=== PATIENT | female | born 1940 | race Hispanic/Latino ===

== ENCOUNTER 2020-01-08 02:14 | Inpatient (IN) | payer MEDICARE, OTHER ==
[~2020-01-08] VITALS: Ht 157.5 cm; Wt 57.5 kg
[2020-01-08] MEDS ORDERED: LEVOFLOXACIN 750 MG/D5W 150 ML 150 ML ONE (02:44)
[2020-01-08] MEDS ORDERED: CEFTRIAXONE SODIUM 1 GM ONE (02:44)
[2020-01-08 03:05] LABS: BASOPHILS % (AUTO) 0.4 % (0.0-5.0); HEMATOCRIT 32.7 % (36-48); LYMPHOCYTES % (AUTO) 6.1 % (21.0-51.0); MEAN CORPUSCULAR HEMOGLOBIN 30.8 pg (27.0-33.0); MEAN CORPUSCULAR HGB CONC 35.2 g/dL (32.0-36.0); MEAN CORPUSCULAR VOLUME 87.7 fL (79-99); MONOCYTES % (AUTO) 4.6 % (3.0-13.0); NEUTROPHILS % (AUTO) 82.5 % (40.0-77.0); PLATELET COUNT (AUTO) 226 K/uL (130-400); RED BLOOD CELL COUNT(AUTO) 3.73 MIL/uL (4.00-5.50); RED CELL DISTRIBUTION WIDTH 12.7 % (11.0-15.5); WHITE BLOOD COUNT (AUTO) 18.7 K/uL (4.8-10.8)
[2020-01-08] MEDS ORDERED: SODIUM CHLORIDE 0.9% 100 ML IV ONE (03:08)
[2020-01-08 03:20] LABS: CREATININE 1.8 mg/dL (0.5-1.5); POTASSIUM 3.6 mmol/L (3.5-5.1)
[2020-01-08 03:25] LABS: ALBUMIN 2.8 g/dL (3.5-5.0); BILIRUBIN,TOTAL 0.6 mg/dL (0.2-1.0); TOTAL PROTEIN, SERUM 7.9 g/dL (6.0-8.3)
[2020-01-08] MEDS: AZITHROMYCIN 500MG+NS 250ML 250 ML IV SCH (04:45)
[2020-01-08] MEDS ORDERED: ONDANSETRON HCL 4 MG/2 ML VIAL IV PRN (04:45)
[2020-01-08] MEDS ORDERED: ERGOCALCIFEROL (VITAMIN D2) 50,000 UNIT CAPSULE PO SCH (04:45)
[2020-01-08] MEDS ORDERED: DOXYCYCLINE 100MG+NS 250ML 250 ML IV SCH (04:45)
[2020-01-08] MEDS ORDERED: ACETAMINOPHEN 325 MG TAB PO PRN ×2 (04:45)
[2020-01-08] MEDS ORDERED: DOXYCYCLINE 100MG+NS 250ML 250 ML IV ONE (04:49)
[2020-01-08] MEDS ORDERED: ACETYLCYSTEINE 600 MG CAPSULE ONE ×3 (04:55→05:43)
[2020-01-08] MEDS ORDERED: ERGOCALCIFEROL (VITAMIN D2) 50,000 UNIT CAPSULE ONE ×3 (04:55→05:42)
[2020-01-08] MEDS ORDERED: AZITHROMYCIN 500MG+NS 250ML 250 ML IV ONE (05:36)
[2020-01-08] MEDS ORDERED: METHYLPREDNISOLONE SOD SUCC 40MG/ML 1ML ONE (05:36)
[2020-01-08 07:04] LABS: APPEARANCE,URINE Clear (CLEAR); BILIRUBIN,URINE Negative (NEGATIVE); COLOR,URINE Yellow (YELLOW); GLUCOSE, URINE (UA) Negative (NEGATIVE); KETONES,URINE Negative (NEGATIVE); LEUKOCYTE ESTERASE ,URINE Trace (NEGATIVE); NITRATE,URINE Negative (NEGATIVE); OCCULT BLOOD,URINE Small (NEGATIVE); PROTEIN,URINE POS 1+ mg/dL (NEGATIVE); UROBILINOGEN,URINE 0.2 mg/dL (0.2-1.0)
[2020-01-08 07:25] LABS: BACTERIA,URINE Rare /HPF (None Seen); RBC,URINE 0-1 /HPF (0-1); SQUAMOUS EPITHELIAL CELL,UR Rare /HPF (0-2)
[2020-01-08] MEDS: ASCORBIC ACID 500 MG TAB PO SCH (09:00)
[2020-01-08] MEDS ORDERED: ACETYLCYSTEINE 600 MG CAPSULE PO SCH (09:00)
[2020-01-08] MEDS: ZINC SULFATE 220 CAPSULE PO SCH (09:00)
[2020-01-08] MEDS ORDERED: ASCORBIC ACID 500 MG TAB ONE (09:12)
[2020-01-08] MEDS ORDERED: ZINC SULFATE 220 CAPSULE ONE (09:12)
[2020-01-08] MEDS ORDERED: HEPARIN SODIUM 5000UNIT/ML 1ML VIAL ONE (09:12)
--- NOTE | 2020-01-08 12:01 | NUR ---
DC PLAN CALLED DAUGHTER ON FACE SHEET NO ANSWER. RAJAT WILL CONTINUE TO FOLLOW. Addendum: 01/08/20 at 1202 by ANALISA TYLER RN CM Amended: Links added.
--- NOTE | 2020-01-08 12:36 | NUR ---
CHART CHECK COMPLETED Pt IS A 79 Y.O. FEMALE ADMITTED SECONDARY TO ACUTE RESPIRATORY FAILURE, COVID+. 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 Pt CURRENTLY ON REGULAR TEXTURE,THIN LIQUID DIET (RENAL NONDIALYSIS). PLEASE REQUEST FORMAL SKILLED SPEECH/SWALLOW EVALUATION IF Pt PRESENTS WITH +S/S OF ASPIRATION SUCH COUGH RESPONSE, THROAT CLEAR, OR WET VOCAL QUALITY DURING P.O. Addendum: 01/08/20 at 1241 by CONCHA MIN, [address] Amended: Links added.
[2020-01-08] MEDS: METHYLPREDNISOLONE SOD SUCC 40MG/ML 1ML IVP SCH ×2 (13:23→21:11)
[2020-01-08] MEDS: HEPARIN SODIUM 5000UNIT/ML 1ML VIAL SQ SCH ×2 (13:24→21:08)
[2020-01-08] MEDS ORDERED: AEC81 PO (13:53)
[2020-01-08] MEDS ORDERED: FOLI1TAB85 PO (13:53)
[2020-01-08] MEDS ORDERED: MONT10TA26 PO (13:53)
[2020-01-08] MEDS ORDERED: METO25TA6 PO (13:53)
[2020-01-08] MEDS ORDERED: LINA5TAB PO (13:53)
[2020-01-08] MEDS ORDERED: LOSA100T58 PO (13:53)
[2020-01-08] MEDS ORDERED: FERR240T6 PO (13:53)
[2020-01-08 14:03] VITALS: BP 137/73
[2020-01-08 16:00] VITALS: BP 122/70
[2020-01-08] MEDS: INSULIN LISPRO 100 UNIT/ML 3ML SQ SCH (16:50)
[2020-01-08 20:41] VITALS: BP 113/69
[2020-01-08] MEDS: INSULIN GLARGINE 100 UNITS/ML 10 ML VIAL SQ SCH (21:10)
[2020-01-08] MEDS: DOXYCYCLINE 100MG+NS 250ML 250 ML IV SCH (21:11)
[2020-01-08] MEDS: ACETYLCYSTEINE 20% 200MG/ML 4ML VIAL PO SCH (21:12)
[2020-01-08 23:33] VITALS: BP 118/70
[2020-01-09 03:47] VITALS: BP 116/66
[2020-01-09 05:01] LABS: BASOPHILS % (AUTO) 0.6 % (0.0-5.0); HEMATOCRIT 31.3 % (36-48); LYMPHOCYTES % (AUTO) 5.2 % (21.0-51.0); MEAN CORPUSCULAR HEMOGLOBIN 30.5 pg (27.0-33.0); MEAN CORPUSCULAR HGB CONC 33.9 g/dL (32.0-36.0); MEAN CORPUSCULAR VOLUME 89.9 fL (79-99); MONOCYTES % (AUTO) 2.2 % (3.0-13.0); NEUTROPHILS % (AUTO) 84.9 % (40.0-77.0); PLATELET COUNT (AUTO) 202 K/uL (130-400); RED BLOOD CELL COUNT(AUTO) 3.48 MIL/uL (4.00-5.50); RED CELL DISTRIBUTION WIDTH 13.1 % (11.0-15.5); WHITE BLOOD COUNT (AUTO) 12.5 K/uL (4.8-10.8)
[2020-01-09 05:40] LABS: ALBUMIN 2.2 g/dL (3.5-5.0); BILIRUBIN,TOTAL 0.3 mg/dL (0.2-1.0); CREATININE 2.8 mg/dL (0.5-1.5); CRP QUANTITATIVE 118.4 mg/L (0.00-9.0); POTASSIUM 4.4 mmol/L (3.5-5.1)
[2020-01-09 05:54] LABS: TOTAL PROTEIN, SERUM 6.9 g/dL (6.0-8.3)
[2020-01-09] MEDS: AZITHROMYCIN 500MG+NS 250ML 250 ML IV SCH (06:32)
[2020-01-09] MEDS: INSULIN LISPRO 100 UNIT/ML 3ML SQ SCH (06:36)
[2020-01-09] MEDS: METHYLPREDNISOLONE SOD SUCC 40MG/ML 1ML IVP SCH ×3 (07:54→21:04)
[2020-01-09] MEDS: DOXYCYCLINE 100MG+NS 250ML 250 ML IV SCH ×2 (07:54→21:04)
[2020-01-09] MEDS: ASCORBIC ACID 500 MG TAB PO SCH (07:54)
[2020-01-09] MEDS: ZINC SULFATE 220 CAPSULE PO SCH (07:55)
[2020-01-09] MEDS: HEPARIN SODIUM 5000UNIT/ML 1ML VIAL SQ SCH ×2 (07:58→16:20)
[2020-01-09 08:40] VITALS: BP 129/80
[2020-01-09] MEDS: ACETYLCYSTEINE 20% 200MG/ML 4ML VIAL PO SCH ×2 (09:00→21:05)
[2020-01-09] MEDS: INSULIN HUMULIN R 100 UNIT/ML 3ML SQ SCH ×5 (11:11→21:06)
[2020-01-09] MEDS: THIAMINE HCL 100 MG TABLET PO SCH (11:33)
[2020-01-09 11:45] VITALS: BP 127/68
--- NOTE | 2020-01-09 15:55 | NUR ---
INITIAL: Unable to meet w pt. Call placed to Nallely (POTruman per facesheet). Per Nallely, prior to admission pt was living w her. PT was independent w ambulation and ADLs, was active w gardening and drove self where needed. Per Nallely pt has a home a nebulizer and a transport chair (although does not know of its condition). Per nallely she feels safe and comfortable for pt to [place]. Per Nallely she will drop off copy of POA tomorrow. CM to continue to follow and wait for Md recommendations. Addendum: 01/09/20 at 1559 by NICK MALIK Amended: Links added.
[2020-01-09 16:26] VITALS: BP 125/79
[2020-01-09] MEDS: PHARMACY COMMUNICATION MISC SCH (19:15)
[2020-01-09 20:39] VITALS: BP 128/57
[2020-01-09] MEDS: APIXABAN 5 MG TABLET PO SCH (21:04)
[2020-01-09] MEDS: INSULIN GLARGINE 100 UNITS/ML 10 ML VIAL SQ SCH (21:05)
[2020-01-09 23:46] VITALS: BP 121/80
[2020-01-10] MEDS: PHARMACY COMMUNICATION MISC SCH ×2 (03:15→20:00)
[2020-01-10 03:30] LABS: APPEARANCE,URINE Clear (CLEAR); BILIRUBIN,URINE Negative (NEGATIVE); COLOR,URINE Yellow (YELLOW); GLUCOSE, URINE (UA) Negative (NEGATIVE); KETONES,URINE Negative (NEGATIVE); LEUKOCYTE ESTERASE ,URINE Trace (NEGATIVE); NITRATE,URINE Negative (NEGATIVE); OCCULT BLOOD,URINE Negative (NEGATIVE); PROTEIN,URINE Negative (NEGATIVE); UROBILINOGEN,URINE 0.2 mg/dL (0.2-1.0)
[2020-01-10 03:31] LABS: SODIUM,URINE RANDOM 48 mmol/l (40-220)
[2020-01-10 03:41] LABS: BACTERIA,URINE Rare /HPF (None Seen); RBC,URINE None Seen /HPF (0-1)
[2020-01-10 04:00] VITALS: BP 136/72
[2020-01-10] MEDS: AZITHROMYCIN 500MG+NS 250ML 250 ML IV SCH (04:11)
[2020-01-10 05:33] LABS: BASOPHILS % (AUTO) 0.6 % (0.0-5.0); HEMATOCRIT 33.5 % (36-48); LYMPHOCYTES % (AUTO) 4.7 % (21.0-51.0); MEAN CORPUSCULAR HEMOGLOBIN 30.9 pg (27.0-33.0); MEAN CORPUSCULAR HGB CONC 33.7 g/dL (32.0-36.0); MEAN CORPUSCULAR VOLUME 91.5 fL (79-99); MONOCYTES % (AUTO) 1.4 % (3.0-13.0); NEUTROPHILS % (AUTO) 85.9 % (40.0-77.0); PLATELET COUNT (AUTO) 266 K/uL (130-400); RED BLOOD CELL COUNT(AUTO) 3.66 MIL/uL (4.00-5.50); RED CELL DISTRIBUTION WIDTH 12.9 % (11.0-15.5)
[2020-01-10] MEDS: INSULIN HUMULIN R 100 UNIT/ML 3ML SQ SCH ×7 (06:09→21:13)
[2020-01-10 06:13] LABS: ALANINE AMINOTRANSFERASE 27 U/L (12-78); ALBUMIN 2.4 g/dL (3.5-5.0); ASPARTATE AMINOTRANSFERASE 25 U/L (10-37); BILIRUBIN,TOTAL 0.4 mg/dL (0.2-1.0); CARBON DIOXIDE 23 mmol/L (21-32); CHLORIDE 99 mmol/L (101-111); CREATININE 1.6 mg/dL (0.5-1.5); GLOMERULAR FILTR. RATE CALC 33 mL/min (>60); GLUCOSE,RANDOM 168 mg/dL (70-105); LACTATE DEHYDROGENASE 328 U/L (81-234); POTASSIUM 3.4 mmol/L (3.5-5.1); SODIUM SERUM 135 mmol/L (136-145); THYROID STIMULATING HORMONE 0.16 uIU/mL (0.36-3.74); UREA NITROGEN, BLOOD 40 mg/dL (7-18)
[2020-01-10] MEDS: ASCORBIC ACID 500 MG TAB PO SCH (08:17)
[2020-01-10] MEDS: FOLIC ACID/VITAMIN B COMP W-C 1 CAP TAB PO SCH (08:17)
[2020-01-10] MEDS: APIXABAN 5 MG TABLET PO SCH ×2 (08:17→21:16)
[2020-01-10] MEDS: METHYLPREDNISOLONE SOD SUCC 40MG/ML 1ML IVP SCH ×3 (08:18→21:15)
[2020-01-10] MEDS: ZINC SULFATE 220 CAPSULE PO SCH (08:18)
[2020-01-10] MEDS: ACETYLCYSTEINE 20% 200MG/ML 4ML VIAL PO SCH ×2 (08:18→21:17)
[2020-01-10] MEDS: DOXYCYCLINE 100MG+NS 250ML 250 ML IV SCH (08:18)
[2020-01-10] MEDS: THIAMINE HCL 100 MG TABLET PO SCH (08:18)
[2020-01-10 09:08] VITALS: BP 139/68
[2020-01-10 11:45] VITALS: BP 118/61
[2020-01-10] MEDS ORDERED: POTASSIUM CHLORIDE 20MEQ/100ML 100 ML IV PRN ×2 (14:00)
[2020-01-10] MEDS ORDERED: POTASSIUM CHLORIDE 10% ELIXIR 20 MEQ/15 ML UDCUP PO PRN (14:00)
[2020-01-10] MEDS ORDERED: POTASSIUM CHLORIDE 20 MEQ ERTAB PO PRN (14:00)
[2020-01-10 16:25] VITALS: BP 141/77
[2020-01-10 19:00] VITALS: BP_SYST 115; BP_SYST 139; BP_DIAS 69; BP_DIAS 82
[2020-01-10] MEDS ORDERED: LACTULOSE 20 GM/30 ML UDCUP PO SCH (19:00)
[2020-01-10] MEDS: INSULIN GLARGINE 100 UNITS/ML 10 ML VIAL SQ SCH (21:14)
[2020-01-10] MEDS: METOPROLOL TARTRATE 25 MG TAB PO SCH (21:15)
[2020-01-10] MEDS: DOXYCYCLINE HYCLATE 100 MG TABLET PO SCH (21:15)
[2020-01-11] VITALS: BP 119/59
--- NOTE | 2020-01-11 00:35 | NUR ---
FIRST UNIT CONVALESCENT PLASMA ADMINISTERED PER HOSPITAL PROTOCOL. PT AGREED AND VERBALIZED UNDERSTANDING WITH THE PROCEDURE. COMPLETED WITHOUT ANY SIGNS AND SYMPTOMS OF TRANSFUSION REACTION. TOLERATED WELL.
[2020-01-11] MEDS: PHARMACY COMMUNICATION MISC SCH ×3 (03:15→19:15)
--- NOTE | 2020-01-11 03:20 | NUR ---
SECOND UNIT CONVALESCENT PLASMA ADMINISTERED PER HOSPITAL PROTOCOL. COMPLETED WITHOUT ANY SIGNS AND SYMPTOMS OF TRANSFUSION REACTION. TOLERATED WELL.
[2020-01-11 03:46] VITALS: BP 126/64
[2020-01-11] MEDS: AZITHROMYCIN 500MG+NS 250ML 250 ML IV SCH (04:01)
[2020-01-11] MEDS: INSULIN HUMULIN R 100 UNIT/ML 3ML SQ SCH ×7 (06:20→21:51)
[2020-01-11 06:25] LABS: BASOPHILS % (AUTO) 0.4 % (0.0-5.0); HEMATOCRIT 28.7 % (36-48); MEAN CORPUSCULAR HEMOGLOBIN 30.3 pg (27.0-33.0); MEAN CORPUSCULAR HGB CONC 33.8 g/dL (32.0-36.0); MEAN CORPUSCULAR VOLUME 89.7 fL (79-99); MONOCYTES % (AUTO) 2.5 % (3.0-13.0); NEUTROPHILS % (AUTO) 85.9 % (40.0-77.0); PLATELET COUNT (AUTO) 210 K/uL (130-400); RED CELL DISTRIBUTION WIDTH 12.6 % (11.0-15.5); WHITE BLOOD COUNT (AUTO) 14.5 K/uL (4.8-10.8)
[2020-01-11 06:50] LABS: ALANINE AMINOTRANSFERASE 23 U/L (12-78); ALBUMIN 2.4 g/dL (3.5-5.0); ASPARTATE AMINOTRANSFERASE 16 U/L (10-37); BILIRUBIN,TOTAL 0.4 mg/dL (0.2-1.0); CARBON DIOXIDE 21 mmol/L (21-32); CHLORIDE 106 mmol/L (101-111); CREATININE 1.5 mg/dL (0.5-1.5); GLOMERULAR FILTR. RATE CALC 36 mL/min (>60); GLUCOSE,RANDOM 231 mg/dL (70-105); LACTATE DEHYDROGENASE 240 U/L (81-234); POTASSIUM 4.4 mmol/L (3.5-5.1); SODIUM SERUM 136 mmol/L (136-145); TOTAL PROTEIN, SERUM 6.4 g/dL (6.0-8.3); UREA NITROGEN, BLOOD 40 mg/dL (7-18)
[2020-01-11 07:20] VITALS: BP 138/72
[2020-01-11] MEDS ORDERED: FOLIC ACID/VITAMIN B COMP W-C 1 CAP TAB PO SCH (09:00)
[2020-01-11] MEDS: ZINC SULFATE 220 CAPSULE PO SCH (10:35)
[2020-01-11] MEDS: LINAGLIPTIN 5 MG TABLET PO SCH (10:35)
[2020-01-11] MEDS: DOXYCYCLINE HYCLATE 100 MG TABLET PO SCH ×2 (10:35→21:29)
[2020-01-11] MEDS: THIAMINE HCL 100 MG TABLET PO SCH (10:35)
[2020-01-11] MEDS: APIXABAN 5 MG TABLET PO SCH ×2 (10:35→21:29)
[2020-01-11] MEDS: ASPIRIN 81 MG EC TAB PO SCH (10:35)
[2020-01-11] MEDS: LOSARTAN 100 MG TABLET PO SCH (10:35)
[2020-01-11] MEDS: FERROUS GLUCONATE 325 MG TABLET PO SCH (10:36)
[2020-01-11] MEDS: FOLIC ACID/VITAMIN B COMP W-C 1 CAP TAB PO SCH (10:36)
[2020-01-11] MEDS: METOPROLOL TARTRATE 25 MG TAB PO SCH ×2 (10:36→21:29)
[2020-01-11] MEDS: MONTELUKAST SODIUM 10 MG TAB PO SCH (10:36)
[2020-01-11] MEDS: ASCORBIC ACID 500 MG TAB PO SCH (10:36)
[2020-01-11] MEDS: ACETYLCYSTEINE 20% 200MG/ML 4ML VIAL PO SCH ×2 (10:37→21:29)
[2020-01-11] MEDS: METHYLPREDNISOLONE SOD SUCC 40MG/ML 1ML IVP SCH ×3 (10:37→21:28)
[2020-01-11 10:46] VITALS: BP 137/60
[2020-01-11 15:48] VITALS: BP 143/71
--- NOTE | 2020-01-11 16:52 | NUR ---
Patient is 97% on 2L NC while in prone position.
--- NOTE | 2020-01-11 18:16 | NUR ---
CM NOTE/[facility] OXYGEN NEW REFERRAL FOR HOME OXYGEN, POA CALLED, BECKY ROACH, AND MADE AWARE. PER POA, OK WITH ANY DME IN NETWORK. REFERRAL FAXED TO [facility], UNFORTUNATELY, IT IS AFTER 5PM AND I AM NOT ABLE TO VERIFY IF IN NETWORK BUT WILL DO SO IN AM. POA MADE AWARE OF LENDING O2 CONCENTRATOR FROM HOSPITAL FOR HOME USE. CM TO FOLLOW UP WITH REFERRAL.
[2020-01-11 19:00] VITALS: BP 134/55
[2020-01-11] MEDS: INSULIN GLARGINE 100 UNITS/ML 10 ML VIAL SQ SCH (21:49)
[2020-01-12] VITALS: BP 145/65
[2020-01-12] MEDS: PHARMACY COMMUNICATION MISC SCH ×3 (03:15→19:15)
[2020-01-12 04:00] VITALS: BP 147/64
[2020-01-12 04:21] LABS: HEMATOCRIT 31.6 % (36-48); MEAN CORPUSCULAR HEMOGLOBIN 30.6 pg (27.0-33.0); MEAN CORPUSCULAR HGB CONC 34.5 g/dL (32.0-36.0); MEAN CORPUSCULAR VOLUME 88.8 fL (79-99); RED BLOOD CELL COUNT(AUTO) 3.56 MIL/uL (4.00-5.50); RED CELL DISTRIBUTION WIDTH 12.6 % (11.0-15.5); WHITE BLOOD COUNT (AUTO) 19.3 K/uL (4.8-10.8)
[2020-01-12 04:30] LABS: CREATININE 1.5 mg/dL (0.5-1.5)
[2020-01-12] MEDS: AZITHROMYCIN 500MG+NS 250ML 250 ML IV SCH (04:55)
[2020-01-12] MEDS: INSULIN HUMULIN R 100 UNIT/ML 3ML SQ SCH ×7 (06:29→21:26)
[2020-01-12 07:25] VITALS: BP 134/70
[2020-01-12] MEDS: ZINC SULFATE 220 CAPSULE PO SCH (10:26)
[2020-01-12] MEDS: DOXYCYCLINE HYCLATE 100 MG TABLET PO SCH ×2 (10:26→21:08)
[2020-01-12] MEDS: LINAGLIPTIN 5 MG TABLET PO SCH (10:26)
[2020-01-12] MEDS: MONTELUKAST SODIUM 10 MG TAB PO SCH (10:26)
[2020-01-12] MEDS: LOSARTAN 100 MG TABLET PO SCH (10:27)
[2020-01-12] MEDS: ASPIRIN 81 MG EC TAB PO SCH (10:27)
[2020-01-12] MEDS: FOLIC ACID/VITAMIN B COMP W-C 1 CAP TAB PO SCH (10:27)
[2020-01-12] MEDS: THIAMINE HCL 100 MG TABLET PO SCH (10:27)
[2020-01-12] MEDS: METOPROLOL TARTRATE 25 MG TAB PO SCH ×2 (10:27→21:08)
[2020-01-12] MEDS: METHYLPREDNISOLONE SOD SUCC 40MG/ML 1ML IVP SCH ×3 (10:27→21:08)
[2020-01-12] MEDS: ASCORBIC ACID 500 MG TAB PO SCH (10:27)
[2020-01-12] MEDS: APIXABAN 5 MG TABLET PO SCH ×2 (10:27→21:08)
[2020-01-12] MEDS: ACETYLCYSTEINE 20% 200MG/ML 4ML VIAL PO SCH ×2 (10:28→21:12)
[2020-01-12] MEDS: FERROUS GLUCONATE 325 MG TABLET PO SCH (10:42)
[2020-01-12 10:49] VITALS: BP 133/65
[2020-01-12 20:45] VITALS: BP 121/72
[2020-01-12] MEDS: INSULIN GLARGINE 100 UNITS/ML 10 ML VIAL SQ SCH (21:27)
[2020-01-13] VITALS: BP 132/70
[2020-01-13] MEDS: PHARMACY COMMUNICATION MISC SCH ×4 (03:15→19:32)
[2020-01-13 04:09] VITALS: BP 117/54
[2020-01-13] MEDS: AZITHROMYCIN 500MG+NS 250ML 250 ML IV SCH (05:07)
[2020-01-13] MEDS: INSULIN HUMULIN R 100 UNIT/ML 3ML SQ SCH ×7 (06:00→20:25)
[2020-01-13 06:18] LABS: BASOPHILS % (AUTO) 0.5 % (0.0-5.0); HEMATOCRIT 32.2 % (36-48); LYMPHOCYTES % (AUTO) 5.9 % (21.0-51.0); MEAN CORPUSCULAR HEMOGLOBIN 30.7 pg (27.0-33.0); MEAN CORPUSCULAR HGB CONC 34.5 g/dL (32.0-36.0); MEAN CORPUSCULAR VOLUME 89.2 fL (79-99); MONOCYTES % (AUTO) 3.5 % (3.0-13.0); NEUTROPHILS % (AUTO) 83.1 % (40.0-77.0); PLATELET COUNT (AUTO) 316 K/uL (130-400); RED BLOOD CELL COUNT(AUTO) 3.61 MIL/uL (4.00-5.50); RED CELL DISTRIBUTION WIDTH 12.8 % (11.0-15.5); WHITE BLOOD COUNT (AUTO) 23.8 K/uL (4.8-10.8)
[2020-01-13 06:35] LABS: CREATININE 1.4 mg/dL (0.5-1.5); POTASSIUM 3.7 mmol/L (3.5-5.1)
[2020-01-13 08:00] VITALS: BP 131/72
[2020-01-13] MEDS: METHYLPREDNISOLONE SOD SUCC 40MG/ML 1ML IVP SCH ×3 (09:34→20:45)
[2020-01-13] MEDS: ACETYLCYSTEINE 20% 200MG/ML 4ML VIAL PO SCH ×2 (09:39→20:45)
[2020-01-13] MEDS: LOSARTAN 100 MG TABLET PO SCH (09:39)
[2020-01-13] MEDS: ASPIRIN 81 MG EC TAB PO SCH (09:39)
[2020-01-13] MEDS: APIXABAN 5 MG TABLET PO SCH ×2 (09:40→20:45)
[2020-01-13] MEDS: FERROUS GLUCONATE 325 MG TABLET PO SCH (09:40)
[2020-01-13] MEDS: LINAGLIPTIN 5 MG TABLET PO SCH (09:40)
[2020-01-13] MEDS: ASCORBIC ACID 500 MG TAB PO SCH (09:40)
[2020-01-13] MEDS: METOPROLOL TARTRATE 25 MG TAB PO SCH ×2 (09:40→20:50)
[2020-01-13] MEDS: DOXYCYCLINE HYCLATE 100 MG TABLET PO SCH ×2 (09:40→20:45)
[2020-01-13] MEDS: FOLIC ACID/VITAMIN B COMP W-C 1 CAP TAB PO SCH (09:40)
[2020-01-13] MEDS: ZINC SULFATE 220 CAPSULE PO SCH (09:40)
[2020-01-13] MEDS: THIAMINE HCL 100 MG TABLET PO SCH (09:40)
[2020-01-13] MEDS: MONTELUKAST SODIUM 10 MG TAB PO SCH (09:40)
[2020-01-13 11:30] VITALS: BP 150/84
[2020-01-13 16:00] VITALS: BP 127/68
--- NOTE | 2020-01-13 17:39 | NUR ---
CM NOTE/OXYGEN RECEIVED AT HOME PER NAVARRO ROACH, POA OF PATIENT, OXYGEN CONCENTRATOR AND PORTABLE OXYGEN DELIVERED AT HOME. INFORMED POA POSSIBILITY OF DISCHARGE HOME TOMORROW IF STABLE, OK WITH PLAN. PRIMARY NURSE AWARE OF HOME OXYGEN.
--- NOTE | 2020-01-13 18:56 | NUR ---
ACTIVITY WITH POST 02 SAT=85% 2 MINUTES WITH O2@3L/NC=94% DECREASED O2@2L/NC =95% AT REST. WILL CONTINUE TO MONITOR.
--- NOTE | 2020-01-13 20:00 | NUR ---
oxygen sat 85 % , increase oxygen at 3 ln/c , patient prone position, sat up to 93 %, teach patient plan of care and expected outcome, patient verbalizes understanding via teach back
[2020-01-13 20:44] VITALS: BP 95/55
[2020-01-13] MEDS: INSULIN GLARGINE 100 UNITS/ML 10 ML VIAL SQ SCH (21:30)
[2020-01-14 00:02] VITALS: BP 93/49
[2020-01-14 04:04] VITALS: BP 131/65
[2020-01-14 04:26] LABS: BASOPHILS % (AUTO) 0.3 % (0.0-5.0); EOSINOPHILS % (AUTO) 0.1 % (0.0-8.0); HEMATOCRIT 32.2 % (36-48); LYMPHOCYTES % (AUTO) 3.8 % (21.0-51.0); MEAN CORPUSCULAR HEMOGLOBIN 30.9 pg (27.0-33.0); MEAN CORPUSCULAR HGB CONC 34.8 g/dL (32.0-36.0); MONOCYTES % (AUTO) 2.7 % (3.0-13.0); NEUTROPHILS % (AUTO) 88.1 % (40.0-77.0); PLATELET COUNT (AUTO) 275 K/uL (130-400); RED BLOOD CELL COUNT(AUTO) 3.62 MIL/uL (4.00-5.50); RED CELL DISTRIBUTION WIDTH 12.8 % (11.0-15.5); WHITE BLOOD COUNT (AUTO) 23.7 K/uL (4.8-10.8)
[2020-01-14] MEDS: AZITHROMYCIN 500MG+NS 250ML 250 ML IV SCH (04:34)
[2020-01-14 04:46] LABS: ALBUMIN 2.5 g/dL (3.5-5.0); BILIRUBIN,TOTAL 0.6 mg/dL (0.2-1.0); CREATININE 1.7 mg/dL (0.5-1.5); CRP QUANTITATIVE 20.7 mg/L (0.00-9.0); POTASSIUM 4.1 mmol/L (3.5-5.1); TOTAL PROTEIN, SERUM 6.5 g/dL (6.0-8.3)
[2020-01-14] MEDS: INSULIN HUMULIN R 100 UNIT/ML 3ML SQ SCH ×4 (06:22→11:30)
[2020-01-14 08:00] VITALS: BP 117/68
[2020-01-14] MEDS ORDERED: APIX2.5T PO (08:00)
[2020-01-14] MEDS ORDERED: DEXA6TAB PO (08:00)
[2020-01-14] MEDS ORDERED: FAMO20TA8 PO (08:00)
[2020-01-14] MEDS ORDERED: ACETYLCYSTEINE 600 MG CAPSULE ONE (08:28)
[2020-01-14] MEDS: LOSARTAN 100 MG TABLET PO SCH (08:49)
[2020-01-14] MEDS: FOLIC ACID/VITAMIN B COMP W-C 1 CAP TAB PO SCH (08:49)
[2020-01-14] MEDS: METOPROLOL TARTRATE 25 MG TAB PO SCH (08:49)
[2020-01-14] MEDS: DOXYCYCLINE HYCLATE 100 MG TABLET PO SCH (08:49)
[2020-01-14] MEDS: APIXABAN 5 MG TABLET PO SCH (08:49)
[2020-01-14] MEDS: ASPIRIN 81 MG EC TAB PO SCH (08:49)
[2020-01-14] MEDS: FERROUS GLUCONATE 325 MG TABLET PO SCH (08:49)
[2020-01-14] MEDS: MONTELUKAST SODIUM 10 MG TAB PO SCH (08:49)
[2020-01-14] MEDS: LINAGLIPTIN 5 MG TABLET PO SCH (08:50)
[2020-01-14] MEDS: ASCORBIC ACID 500 MG TAB PO SCH (08:50)
[2020-01-14] MEDS: THIAMINE HCL 100 MG TABLET PO SCH (08:50)
[2020-01-14] MEDS: ZINC SULFATE 220 CAPSULE PO SCH (08:50)
[2020-01-14] MEDS: ACETYLCYSTEINE 20% 200MG/ML 4ML VIAL PO SCH (08:51)
[2020-01-14] MEDS ORDERED: DEXAMETHASONE 4 MG TAB PO SCH (09:00)
[2020-01-14] MEDS ORDERED: AZIT500T2 PO (11:12)
[2020-01-14 11:30] VITALS: BP 124/62
[2020-01-14] MEDS: PHARMACY COMMUNICATION MISC SCH (12:16)
== END 2020-01-14 14:45 | disposition home or self-care (01) | DRG 177 ==
LOC: EDH 02:14 → EDHIP 04:36 → 3AH 13:50 → 4CH 01-12 17:53
PROVIDERS: ADMIT Internal Medicine; ATTEND Internal Medicine
PROC: XW13325 Transfusion of Convalescent Plasma (Nonautologous) into Peripheral Vein, Percutaneous Approach, New Technology Group 5 (ICD-10-PCS; principal; 2020-01-11)
DX: U07.1 COVID-19 (principal); J96.01 Acute respiratory failure with hypoxia; J12.89 Other viral pneumonia; E87.1 Hypo-osmolality and hyponatremia; N17.9 Acute kidney failure, unspecified; E78.5 Hyperlipidemia, unspecified; D64.9 Anemia, unspecified; K72.90 Hepatic failure, unspecified without coma; E11.9 Type 2 diabetes mellitus without complications; I10 Essential (primary) hypertension; Z91.19 Patient's noncompliance with other medical treatment and regimen; Z90.5 Acquired absence of kidney; Z85.528 Personal history of other malignant neoplasm of kidney
CPT/HCPCS: 36415; 71045; 71250; 76770; 80048; 80053; 81001; 82728; 82948; 83615; 83880; 83935; 84145; 84300; 84443; 84550; 85025; 85027; 85378; 86140; 86900; 86901; 86927; 87040; 87088; 93005; 94760; 97039; 99291; G0378; J0456; J0696; J1644; J1815; J1956; J2920; J3490; J7608